=== PATIENT | male | born 1945 | race Caucasian/White ===

== ENCOUNTER 2017-01-24 13:16 | Emergency (ER) | payer MEDICARE, OTHER ==
[2017-01-24 14:34] LABS: BASOPHIL 0.6 % (0-2); EOSINOPHIL 0.6 % (0-7); HCT 48.3 % (42.0-52.0); HGB 16.3 g/dl (13.2-18.0); LYMPHOCYTE 15.5 % (15-48); MCH 30.8 pg (25.0-31.0); MCHC 33.7 g/dL (32.0-36.0); MCV 91.3 fL (78.0-100.0); MONOCYTE 6.6 % (0-12); MPV 10.5 fL (6.0-9.5); NEUTROPHIL 76.7 % (41-80); PLT 231 K/uL (150-400); RBC 5.29 M/uL (4.70-6.00); RDW 13.1 % (11.5-14.0); WBC 7.1 K/uL (4.0-10.5)
[2017-01-24 14:45] LABS: BILIRUBIN NEGATIVE (NEGATIVE); BLOOD NEGATIVE Ery/uL (NEGATIVE); CLARITY CLEAR (CLEAR); COLOR YELLOW (YELLOW); GLUCOSE (U) NORMAL (NORMAL); KETONE (U) NEGATIVE (NEGATIVE); LEUKOCYTES NEGATIVE Leu/uL (NEGATIVE); NITRITE NEGATIVE (NEGATIVE); PROTEIN 1+ mg/dL (NEGATIVE); UROBILINOGEN 0.2 mg/dL (0.2-1.0); pH 7.5 (5.0-9.0)
[2017-01-24 15:04] LABS: SQUAMOUS EPITHELIAL CELLS RARE; URINARY WBC RARE
[2017-01-24 15:25] LABS: CREATININE 1.3 mg/dL (0.7-1.2)
== END 2017-01-24 16:11 | disposition home or self-care (01) ==
LOC: FER 13:16
PROVIDERS: Emergency Medicine
DX: I10 Essential (primary) hypertension (principal)
CPT/HCPCS: 36415; 80048; 81001; 84152; 85025; 99283

== ENCOUNTER 2022-06-03 17:43 | Emergency (ER) | payer MEDICARE, OTHER ==
[2022-06-03] MEDS ORDERED: AMOX TR-K CLV1 EAC4 PO (19:20)
== END 2022-06-03 19:45 | disposition home or self-care (01) ==
LOC: FER 17:43
DX: S01.85XA Open bite of other part of head, initial encounter (principal); S51.852A Open bite of left forearm, initial encounter; I10 Essential (primary) hypertension; Z79.899 Other long term (current) drug therapy; W54.0XXA Bitten by dog, initial encounter; Y92.89 Other specified places as the place of occurrence of the external cause